=== PATIENT | female | born 1970 | race African-American/Black ===

== ENCOUNTER → 2020-05-25 | Outpatient (CLI) | payer BC ==
[2015-03-30 22:43] VITALS: BP 132/70
[~2020-05-25] MED LIST: CETI10TA74 PO; HYDR10SY16 PO; OLME20TA17 PO
--- NOTE | 2020-05-25 20:09 | RAD ---
STUDY: Complete renal sonogram INDICATION: Hematuria. COMPARISON: None. TECHNIQUE: Real-time grayscale and color Doppler sonographic evaluation of both kidneys. The bladder was also evaluated. FINDINGS: Right kidney: Measures 10.5 cm in length. Cortical thickness and echogenicity is within normal limits . Small upper pole cystic focus without complex features measures up to 1 cm. No hydronephrosis. Left kidney: Measures 10.2 cm in length. Cortical thickness and echogenicity are within normal limits . No complex cyst or mass. No hydronephrosis. Bladder: No focal wall thickening or layering debris appreciated by ultrasound. Miscellaneous: The partially assessed liver is unremarkable. IMPRESSION: No sonographic abnormality of the kidneys or urinary bladder that would explain the patient's hematur ia. Electronically signed by: KAE BYERS MD (05/25/2020 8:07 PM) [facility]
== END ==
LOC: US 16:09
PROVIDERS: ATTEND Family Medicine
DX: R31.9 Hematuria, unspecified (principal)
CPT/HCPCS: 76770